=== PATIENT | female | born 1980 | race Caucasian/White ===

== ENCOUNTER 2019-06-02 06:03 | Day surgery (SDC) | payer OTHER ==
[2019-06-01 08:19] VITALS: BMI 36.2
[2019-06-02] MEDS ORDERED: DEXAMETHASONE SOD PHOSPHATE 4 MG/1 ML VIAL ONE ×2 (07:08→08:50)
[2019-06-02] MEDS ORDERED: BACITRACIN 15 GM TUBE TOPICAL OINTMENT ONE (07:08)
[2019-06-02] MEDS ORDERED: LIDOCAINE HCL 1%, 10 MG/ML (20ML VIAL) ONE (07:08)
[2019-06-02] MEDS ORDERED: MIDAZOLAM HCL 2 MG/2 ML SINGLE DOSE VIAL ONE (07:36)
[2019-06-02] MEDS ORDERED: BUPIVACAINE HCL/PF 0.5% (5 MG/ML) 30 ML VIAL IJ ONE (07:57)
[2019-06-02] MEDS ORDERED: BUPIVACAINE LIPOSOME/PF (EXPAREL) 266 MG/20 ML VIAL ONE (07:57)
[2019-06-02] MEDS ORDERED: BUPIVACAINE HCL/PF 0.25% (2.5MG/ML) 10 ML VIAL ONE (07:57)
[2019-06-02] MEDS ORDERED: LIDOCAINE HCL/PF 2% SDV 5ML VIAL ONE (08:16)
[2019-06-02] MEDS ORDERED: ceFAZolin SODIUM 1 GM VIAL ONE (08:16)
[2019-06-02] MEDS ORDERED: PROPOFOL 20 ML ONE ×3 (08:17→08:34)
[2019-06-02] MEDS ORDERED: ceFAZolin SODIUM 1 GM VIAL IVPB ONE (08:21)
[2019-06-02] MEDS ORDERED: LIDOCAINE HCL 1%, 10 MG/ML (20ML VIAL) NR ONE (08:21)
[2019-06-02] MEDS ORDERED: BUPIVACAINE HCL/PF 0.5% (5MG/ML) 10 ML VIAL PNB ONE (08:21)
[2019-06-02] MEDS ORDERED: BACITRACIN 50,000 UNITS VIAL TP ONE (08:49)
--- NOTE | 2019-06-02 09:13 | OP ---
Operative Note - Note: Operative Date: 06/02/19 Pre-Operative Diagnosis: hammer toe right 5th toe Operation: arthroplasty PIPJ with lateral middle oleg-phalangectomy Findings: hypertrophic bone and soft tissue Post-Operative Diagnosis: Same as Pre-op Surgeon: Shilpi Valentine Anesthesia: Local, MAC Specimens Removed: bone and soft tissue Estimated Blood Loss (mls): 5
[2019-06-02] MEDS ORDERED: ONDANSETRON 4 MG/2 ML VIAL IVPUSH PRN (09:27)
[2019-06-02] MEDS ORDERED: oxyCODONE HCL 5 MG TABLET PO PRN (09:27)
[2019-06-02] MEDS ORDERED: KETOROLAC TROMETHAMINE 30 MG/1 ML VIAL IVPUSH PRN (09:28)
[2019-06-02] MEDS ORDERED: LACTATED RINGERS SOLUTION 1,000 ML IV SCH (09:30)
[2019-06-02 09:59] VITALS: BP 127/74; PULSE 73; TEMP 97.4
--- NOTE | 2019-06-03 12:15 | OP ---
DATE OF OPERATION: 06/02/2019 SURGEON: Shilpi Valentine DPM Shook Splicer: Resident Melody Navarro DPM PREOPERATIVE DIAGNOSIS: Right foot 5th digit hammer toe. POSTOPERATIVE DIAGNOSIS: Right foot 5th digit hammer toe. PROCEDURE: hammer toe repair arthropathy of pipj right 5th digit with lateral middle oleg-phalngectomy ANESTHESIA: MAC with local. HEMOSTASIS: Ankle tourniquet at 250 mmHg to the right ankle. ESTIMATED BLOOD LOSS: 5 mL. MATERIAL: 3-0 Vicryl, 4-0 nylon. PREPROCEDURE INFORMATION: In the preoperative holding area, the extremity to be operated on was clearly marked, right foot in this case, and the patient verified correct laterality of the making. The patient was transferred to the OR table and placed in a supine position. A time-out was performed in which identification of the correct patient, procedure, location, and materials was done. The right foot and leg were prepped and draped in the normal sterile fashion. The foot and leg were exsanguinated, and the ankle tourniquet was inflated to 250 mmHg. Attention was then directed to the right foot dorsal 5th digit where a linear incision was made from the distal medial aspect extending to the proximal lateral aspect in an elliptical fashion on the right 5th digit on the dorsal aspect. The incision was made over the proximal interphalangeal joint gaining access to that joint. The incision was deepened to the level of the extensor tendon. Soft tissue was released about the IPJ. The extensor tendon was transected at the level of the IPJ. Using an oscillating saw, the head of the distal 1/3 of th proximal phalanx was resected in an angular fashion from distal medial to proximal lateral. Attention was then directed to the middle phalax and the soft tiissue was liberated from the lateral aspect. Next, a lateral middle hemiphalangectomy was performed on the lateral aspect of the middle phalanx with a double action bone cutter. A ball igor was used to smooth the lateral aspect of the middle phalanx. A flush was then done with copious amounts of sterile saline that had antibiotic added to it. The toe was then noted to be in good alignment with no bony prominences noted. The Extensor tendon was then reapproximated using 3.0 Vicryl suture in a simple interrupted suture fashion. The skin was reapproximated using 4-0 nylon sutures in a simple interrupted suture fashion. Immediate correction was noted to the hammer toe, and derotational alignment was observed to be in proper rectus position. A dry, sterile dressing was placed on the surgical extremity. Immediate perfusion of digits was observed. POSTOPERATIVE INFORMATION: The patient tolerated the above-noted procedure and anesthesia well and was transferred to the PACU with vital signs stable and vascular status intact with capillary refill intact to all digits. Postoperative instructions were reviewed in detail with the patient with written instructions dispensed to the patient. Patient will return to clinic in approximately 1 week for 1st postoperative visit. The patient has the number of the clinic and was instructed to call prior to that time if any problems, questions, or concerns should arise. ASIF Hutchins/[id number] MTDJonathon
--- NOTE | 2019-06-07 18:16 | PATH ---
Surgical Pathology Report Patient Name: SLICK KUMAR [facility]. Rec. #: [id number] /Age/Gender: 1980 (Age: 39) / F Account: [id number] Location: [facility] Taken: 06/02/2019 Received: 06/02/2019 Reported: 06/07/2019 Physicians: Shilpi Valentine DPM Specimen(s) Received BONE AND TISSUE RIGTH 5TH TOE Clinical History Right 5th toe hammer toe Final Diagnosis BONE AND TISSUE RIGHT 5TH TOE, EXCISION: PORTION OF BONE WITH FATTY MARROW SHOWING FOCAL DEGENERATIVE CHANGE. SEGMENT OF SKIN WITH HYPERKERATOSIS AND ACANTHOSIS. Electronically Signed Francis Ruffin M.D. Gross Description Received in formalin, labeled "bone and tissue right 5th toe" are a portion of skin (1.5 x 0.8 x 0.2 cm ) and one portion of bone measuring 0.9 cm greatest dimension. The skin surface is unremarkable. The specimen is submitted in toto in one cassette for decalcification. RUTH/06/03/2019 isacc/06/03/2019
== END 2019-06-02 12:08 | disposition home or self-care (01) ==
LOC: JASU-SURG 06:03
PROVIDERS: ATTEND Podiatrist Foot Surgery
PROC: 0SNP0ZZ Release Right Toe Phalangeal Joint, Open Approach (ICD-10-PCS; principal; 2019-06-02 07:30)
DX: M20.41 Other hammer toe(s) (acquired), right foot (principal)
CPT/HCPCS: 73630-TC-RT-FY; 84703; 88304-TC; 88311-TC; 94760

== ENCOUNTER 2019-06-16 09:24 | Day surgery (SDC) | payer OTHER ==
[2019-06-15 14:06] VITALS: BMI 36.6
[2019-06-16 10:39] VITALS: TEMP 98
[2019-06-16] MEDS ORDERED: BUPIVACAINE HCL/PF 0.5% (5 MG/ML) 30 ML VIAL IJ ONE ×2 (11:06→11:27)
[2019-06-16] MEDS ORDERED: LIDOCAINE HCL 1%, 10 MG/ML (20ML VIAL) ONE (11:06)
[2019-06-16] MEDS ORDERED: DEXAMETHASONE SOD PHOSPHATE 4 MG/1 ML VIAL ONE (11:11)
[2019-06-16] MEDS ORDERED: MIDAZOLAM HCL 2 MG/2 ML SINGLE DOSE VIAL ONE ×3 (11:20)
[2019-06-16] MEDS ORDERED: ceFAZolin SODIUM 1 GM VIAL IVPB ONE (11:21)
[2019-06-16] MEDS ORDERED: PROPOFOL 20 ML ONE (11:27)
[2019-06-16] MEDS ORDERED: LIDOCAINE HCL 1%, 10 MG/ML (20ML VIAL) PNB ONE (11:27)
[2019-06-16 14:42] VITALS: BP 129/77; PULSE 76
--- NOTE | 2019-06-16 16:08 | OP ---
Operative Note - Note: Operative Date: 06/16/19 Pre-Operative Diagnosis: hammertoe 5th toe left Operation: arthroplasty proximal interphalangeal joint 5th toe left with lateral middle oleg-phalangectomy. Findings: hypertrophic bone and soft tissue Post-Operative Diagnosis: Same as Pre-op Surgeon: Shilpi Valentine Anesthesia: Local, MAC Specimens Removed: bone and skin Estimated Blood Loss (mls): 5 Operative Report Dictated: No
--- NOTE | 2019-06-21 14:05 | PATH ---
Surgical Pathology Report Patient Name: SLICK KUMAR Med. Rec. #: [id number] /Age/Gender: 1980 (Age: 39) / F Account: [id number] Location: [facility] SURG[facility] Taken: 06/13/2019 Received: 06/16/2019 Reported: 06/21/2019 Physicians: Shilpi Valentine DPM Specimen(s) Received BONE AND SOFT TISSUE FROM LEFT 5TH TOE Clinical History Left the foot 5th digit hammertoe Final Diagnosis BONE AND SOFT TISSUE FROM LEFT 5TH TOE, EXCISION: PORTIONS OF BONE WITH FOCAL DEGENERATIVE CHANGE. SEGMENT OF SKIN WITH HYPERKERATOSIS. Electronically Signed Francis Ruffin M.D. Gross Description Received in formalin, labeled "bone and soft tissue from left 5th toe" are 2 portions of bone tissue measuring 0.3 to 0.9cm. in greatest dimension. Separate to one portion of skin measuring 1.5 x 1 x 0.3 cm with unremarkable surface is also present. The skin is bisected. The specimen is submitted in toto in one cassette for decalcification. KWDaina/06/16/2019 isacc/06/16/2019
--- NOTE | 2019-06-26 21:46 | OP ---
DATE OF OPERATION: 06/16/2019 PREOPERATIVE DIAGNOSIS: Hammertoe, 5th toe, left. POSTOPERATIVE DIAGNOSIS: Hammertoe, 5th toe, left. PROCEDURE: Arthroplasty, proximal interphalangeal joint of the 5th toe, with lateral middle hemiphalangectomy also of the 5th toe, left foot. PROCEDURE: After noting all preoperative vital signs within normal limits and after surgical consent was signed and witnessed, the patient was brought to the OR, placed on the table in supine position. An IV line had been started prior to the patient coming to the OR. Once the patient was on the table, a well-padded ankle tourniquet was applied to the left ankle. At this time, the foot was then prepped and draped in the usual sterile fashion. The foot was elevated and exsanguinated using an Esmarch bandage. Once this was done, the tourniquet was elevated to 250 mmHg. Attention was then directed to the 5th toe of the left foot, where 2 converging semi-elliptical incisions were created approximately 3 cm in length over the proximal interphalangeal joint. This incision was deepened using sharp and blunt dissection. A wedge of skin was removed and sent down to Pathology. At this time, the extensor tendon was identified over the proximal interphalangeal joint. The extensor tendon was then transected from medial to lateral and reflected proximally, exposing the head of the proximal phalanx. All soft tissue was then liberated using sharp dissection from the head of the proximal phalanx. Once the distal one-third of the proximal phalanx was identified, utilizing a sagittal saw in angulated fashion going from distal medial to proximal lateral, an angulated cut was created in the proximal phalanx, removing the distal one-third of the proximal phalanx. Once this was done, attention was directed to the middle phalanx of the 5th toe of the left foot. The lateral soft tissue was then liberated utilizing a double-action bone cutter. The lateral and middle hemiphalangectomy was done. Once this was done, a bur was utilized to remodel the remaining portion of the middle phalanx. The area was palpated in the head of the proximal phalanx and the lateral aspect of the middle phalanx. There were no remaining spicules noted. A flush was then done with copious amounts of sterile saline that had antibiotic added to it. Once this was done, the extensor tendon was reapproximated using 3-0 Vicryl in a simple interrupted suture fashion. Skin was then closed utilizing 4-0 nylon in a simple interrupted suture fashion. Once this was done, Betadine-soaked Adaptic was put in place. A postoperative injection was put into place. Dry sterile gauze and a Imani dressing were applied with an Garrick bandage. Tourniquet was deflated and capillary filling time was instantaneous to all 5 toes of the left foot. Patient tolerated the anesthesia and the procedure well. Patient returned to recovery room with vital signs stable and vascular status intact. ASIF Hutchins/[id number]
== END 2019-06-16 14:20 | disposition home or self-care (01) ==
LOC: JASU-SURG 09:24
PROVIDERS: ATTEND Podiatrist Foot Surgery
PROC: 0QBR0ZZ Excision of Left Toe Phalanx, Open Approach (ICD-10-PCS; 2019-06-16)
PROC: 0SRQ0JZ Replacement of Left Toe Phalangeal Joint with Synthetic Substitute, Open Approach (ICD-10-PCS; principal; 2019-06-16 10:30)
DX: M20.42 Other hammer toe(s) (acquired), left foot (principal)
CPT/HCPCS: 73630-TC-LT; 84703; 88304-TC; 88311-TC; 97116-GP